=== PATIENT | male | born 1955 | race Caucasian/White ===

== ENCOUNTER 2019-06-03 10:00 | Outpatient (RCR) | payer MEDICARE, OTHER, SELFPAY | END 2019-06-16 10:03 | LOC: CAR 10:00 | PROVIDERS: Visit Provider Thoracic Surgery (Cardiothoracic Vascular Surgery) | DX: Z95.1 Presence of aortocoronary bypass graft (principal) | CPT/HCPCS: 93798 ==

== ENCOUNTER → 2022-11-13 09:41 | Outpatient (CLI) | payer MEDICARE, OTHER, SELFPAY ==
--- NOTE | 2022-11-13 | DI.CT.S_ITS ---
PROCEDURE: CT SINUS SCREEN WO CON INDICATIONS: Chronic pansinusitis TECHNIQUE: Noncontrast 3.0 mm axial images acquired from the frontal sinuses to the mid-sella, with coronal and sagittal reformats. For radiation dose reduction, the following was used: automated exposure control, adjustment of mA and/or kV according to patient size. COMPARISON: None. FINDINGS: Image quality: Excellent. Maxillary Sinuses: Yhcw-nf-dwaauymp mucosal thickening can be seen within the inferior maxillary sinuses. The medial ribeiro of the maxillary sinuses appear demineralized. Ethmoid Air Cells: No bony remodeling or destruction. Sinuses are clear. Sphenoid Sinuses: No bony remodeling or destruction. Sinuses are clear. Frontal Sinuses: No bony remodeling or destruction. Sinuses are clear. Ostiomeatal Complexes: Ostiomeatal complexes are patent, yet they are constitutionally narrowed. Woody cells are seen on the right. The ostiomeatal complexes are demineralized. Miscellaneous: Visualized intra-orbital contents are normal. No odette bullosa or paradoxical turbinate curvature. There is mild leftward nasal septal deviation. IMPRESSION: Focal maxillary sinus disease seen. Areas of bony demineralization are seen, which are consistent with chronic sinusitis. Patent, yet constitutionally narrowed ostiomeatal complexes. Mild leftward nasal septal deviation can be seen. Dictated by: Danny Contreras M.D. on 11/13/2022 at 10:32 Approved by: Danny Contreras M.D. on 11/13/2022 at 10:34
== END ==
PROVIDERS: Referring Provider Otolaryngology; Visit Provider Otolaryngology
DX: J32.4 Chronic pansinusitis (principal); J34.89 Other specified disorders of nose and nasal sinuses; J34.2 Deviated nasal septum
CPT/HCPCS: 70486

== ENCOUNTER 2023-07-18 12:47 | Day surgery (SDC) | payer MEDICARE, OTHER, SELFPAY ==
[2023-07-10 16:45] VITALS: BMI 28.4
[2023-07-18 13:15] VITALS: BMI 28.4
[2023-07-18 13:30] VITALS: BP 144/86; PULSE 89; RESP 14; TEMP 37.1; O2SAT 98
[2023-07-18] MEDS: OXYMETAZOLINE NASAL SPRAY 30 ML 2 SPRAYS NASAL (13:39)
--- NOTE | 2023-07-18 15:19 | PM.PREOP ---
Pre-operative Note Interval Note History & Physical reviewed/Exam performed by Physician: Yes Changes to H&P: No
--- NOTE | 2023-07-18 15:20 | P.OP_ITS ---
Operative Date/Time/Diagnoses Date of procedure: 07/18/23 Time of procedure: 16:54 Pre-op diagnosis: Nasal airway obstruction, septal deviation, inferior turbinate hypertrophy Post-op diagnosis: same (Polypoid middle turbinates, reduced) Procedure & Clinicians Procedure: 1. Septoplasty 2. Bilateral inferior turbinate reduction via intramural cautery Same procedure as scheduled: Yes Indications: 68-year-old male with the above diagnoses incompletely managed with medical therapy presents for the above procedure. Following discussion of the material risks benefits complications and alternatives, the patient elected to proceed. Surgeon: Jhonny Alonso Click Yes if Unassisted: Yes Anesthesia Type: General and Local Operative Notes Findings: 2 to 3+ right anterior septal deviation, low perforation RIGHT ant low flap, LEFT intact in that area. LEFT posterior mild deviation. Polypoid bilat middle turbinates L>R, reduced with suction cautery. moderate [id number]-[id number]-right inferior turbinate hypertrophy Estimated Blood Loss (mL): 30 Procedure in detail: Following identification and confirmation of consent as well as preoperative Afrin nasal spray, the patient was brought to the operating room suite and placed in the supine position. General endotracheal anesthesia was administered. I infiltrated the septum widely bilaterally with 1% lidocaine 1 100,000 epinephrine followed by temporary packing with cotton with Afrin and 4% lidocaine. Following sterile prep and drape, the packing was removed and I perf ormed a right vin-transfixion incision, elevated the right mucoperichondrial and mucoperiosteal flap. I disarticulated near the bony/cartilaginous junction and elevated the left mucoperiosteal flap. Deviated portions of the perpendicular plate of the ethmoid and vomer were resected. The residual quadrilateral cartilage was further straightened by trimming it inferiorly as well as reducing the maxillary crest. A 2 mm strip of cartilage paralleling the residual 1 cm dorsal and caudal strut was resected to further straighten the quadrilateral cartilage. The hemitransfixion incision was closed with interrupted 5 0 chromic followed by a running 4 0 plain gut mattress suture to reapproximate the septal flaps. At case completion, 20/1000th of an inch silastic splints were placed bilaterally, sutured anteriorly with a single 4 0 nylon. The polypoid middle turbinates were reduced with suction cautery on a setting of 10. No bleeding. The head of each inferior turbinate had been previously infiltrated with additional local anesthetic and a 25 gauge spinal needle was used to impale the length of the turbinate, with cautery on a setting of 15 activated on slow withdrawal over 2 passes LEFT, single RIGHT. The turbinates were then outfractured. The procedure completed, sponge and needle counts were correct and the patient was extubated in the operating room and taken to recovery room in stable condition without known complication. Postoperative care: Nasal saline every hour while awake, Vaseline or Polysporin to the nostrils at all times, begin irrigations t.i.d. beginning pod 1. Humidifier at the bedside blowing on the face. Tylenol alternating with Advil for pain control, oxycodone if necessary for breakthrough pain. Complications: none Post-operative Condition: stable Disposition: same day surgery Plan for aftercare: Nasal saline every hour while awake, begin irrigations t.i.d. tomorrow if desired. Polysporin to the nostrils at all times, Tylenol alternating with Advil for pain control, oxycodone for breakthrough pain. Elevate head of bed, no nose blowing, no straining for 2 weeks. Ice directly under the nose on the upper lip has tolerated 24-48 hours at a minimum. Follow-up in 1 week for nasal splint removal.
--- NOTE | 2023-07-18 15:52 | SUR.OPER ---
Supine on padded OR bed, head on pillow, arms padded and tucked at sides, legs uncrossed, safety belt at thigh, tape over blanket over lower legs .
[2023-07-18] MEDS: LIDOCAINE 4% SOLN 50 ML 20 ML TOP (16:05)
[2023-07-18] MEDS: LIDOCAINE 1% W/EPI 20 ML INJ (16:07)
[2023-07-18] MEDS: BACITRACIN OINT 0.9 GM PCKT 1 APPLIC TOP (16:13)
[2023-07-18 17:02] VITALS: BP 138/91; PULSE 100; RESP 19; TEMP 36.8; O2SAT 94
[2023-07-18 17:07] VITALS: BP 149/83; PULSE 97; RESP 12; O2SAT 91
[2023-07-18 17:12] VITALS: BP 127/80; PULSE 97; RESP 13; O2SAT 94
[2023-07-18 17:16] VITALS: BP 122/73; PULSE 92; RESP 14; O2SAT 94
[2023-07-18 17:26] VITALS: BP 124/75; PULSE 89; RESP 16; TEMP 36.8; O2SAT 98
== END 2023-07-18 17:43 | disposition home or self-care (01) ==
PROVIDERS: PCP Physician Assistant Medical; Referring Provider Otolaryngology; Visit Provider Otolaryngology
PROC: (CPT 30520; principal; 2023-07-18 14:15)
DX: J34.2 Deviated nasal septum (principal); J98.8 Other specified respiratory disorders; J34.3 Hypertrophy of nasal turbinates
CPT/HCPCS: 30520; 30802; J1100; J2250; J2405; J2704; J3010